=== PATIENT | male | born 1995 | race Two or more races ===

== ENCOUNTER 2020-10-28 19:02 | Emergency (ER) | payer SELFPAY ==
[2020-10-28] MEDS ORDERED: Diphtheria,Pertussis(Acell),Tetanus Vaccine 0.5 ML Syringe IM ONE (19:34)
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
[2020-10-28] MEDS ORDERED: Ibuprofen 600 MG Tab PO ONE (19:35)
[2020-10-28] MEDS ORDERED: Bacitracin Oint 28.35 GM Tube TOP STA (19:54)
== END 2020-10-28 20:15 | disposition home or self-care (01) ==
LOC: MW.ED 19:02
DX: T33.011A Superficial frostbite of right ear, initial encounter (principal); T33.012A Superficial frostbite of left ear, initial encounter; Z23 Encounter for immunization
CPT/HCPCS: 90471; 99283; A9270